=== PATIENT | female | born 1950 | race Asian ===

== ENCOUNTER → 2016-05-25 | Outpatient (CLI) | payer MEDICARE | END | disposition home or self-care (01) | LOC: CFH 12:15 | PROVIDERS: ATTEND Family Medicine | DX: Z13.820 Encounter for screening for osteoporosis (principal); M85.88 Other specified disorders of bone density and structure, other site; N95.1 Menopausal and female climacteric states; Z79.891 Long term (current) use of opiate analgesic | CPT/HCPCS: 77080 ==